=== PATIENT | female | born 1990 | race Caucasian/White ===

== ENCOUNTER 2019-11-10 17:24 | Emergency (ER) | payer OTHER, SELFPAY ==
[2019-11-10 17:25] VITALS: BP 122/67; PULSE 89; RESP 16; TEMP 36.3; O2SAT 100; BMI 23.8
--- NOTE | 2019-11-10 17:55 | ED.VISSUMM ---
- ER Visit Summary Date of Service: 11/10/19 Chief Complaint: Nausea and vomiting History of Present Illness: The patient is a 29 F who presents with nausea and vomiting that began today. Patient states she has been unable to keep anything down. Patient states she has been vomiting approximately every 1/2 hour throughout the day today. Patient denies any hematemesis or coffee-ground emesis. Patient admits to some sharp abdominal pain that comes on prior to vomiting. Patient states this is over the right side of her abdomen. Patient admits to subjective chills. Patient states she is approximately 6 to 7 weeks . Patient states her last menstrual period was in September. Patient denies any dysuria or hematuria. Patient denies any diarrhea, melena, or hematochezia. Physical Examination: Vital signs are stable. Patient is afebrile. Patient is in no acute distress. Oral mucosa is pink and moist. Neck is supple. Trachea is midline. There is no JVD. Heart was regular rate and rhythm. Lungs are clear and equal bilaterally. Abdomen is soft. Bowel sounds are normal. There is mild diffuse tenderness. There is no rebound or guarding noted. Cranial nerves II through XII are intact. There are no focal motor or sensory deficits noted. Test Results: CBC shows a mild leukocytosis of 16.6. This is likely due to the vomiting as well as the . Comprehensive metabolic profile was essentially within normal limits. Urinalysis does not show any evidence of urinary tract infection. Serum hCG was 24,413. Emergency Department Course and Treatment: Patient was given IV fluids and Zofran here. Patient was feeling better on reevaluation. Patient was given a prescription for Zofran. Patient was instructed to start with liquid diet and advance to a bland diet and then to a regular diet as she feels better. Patient was instructed to follow-up with her primary care physician and [employer]PORATE IN[employer]STIGATOR in 3 to 5 days. Patient understood and was agreeable with the plan. All questions were answered. Disposition: Discharge home Impression: Nausea and vomiting This note was generated with [employer] dictation software. It may contain incorrect words, spelling, and punctuation that were not noted in review of the chart prior to signing ED Disposition - Plan for ED Patient: Disposition: Home or Assisted Living Diagnosis: Nausea and vomiting Instructions: VOMITING (4y-Adult) Prescriptions: Ondansetron [Zofran Odt] 4 mg PO Q8H PRN PRN #10 tab PRN Reason: Nausea Prescription Printed Referrals: Care Physician,No Primary [Primary Care Provider] - 3-5 Days
[2019-11-10] MEDS: 0.9% Normal Saline 1,000 ML 1000 ML IV (18:13)
[2019-11-10] MEDS: Ondansetron 4 MG/2 ML Vial IV (18:16)
[2019-11-10 18:24] VITALS: BP 132/80; PULSE 80; RESP 14; O2SAT 98
[2019-11-10 18:28] LABS: Absolute Lymphocyte Count 0.44 X10^3/uL (0.83-4.51); Absolute Neutrophil Count 15.5 X10^3/uL (2.0-7.7); Basophil# 0.04 X10^3/uL; Basophil% 0.2 % (0-1); Eosinophil# 0.05 X10^3/uL; Eosinophils% 0.3 % (0-5); Hematocrit 41.8 % (37-47); Hemoglobin 14.5 g/dL (12.0-15.0); Lymphocyte # 0.44 X10^3/ul (4.0); Lymphocyte % 2.6 % (19-41); Mean Corp Hgb Conc 34.7 g/dL (32-36); Mean Corpuscular Hgb 29.1 pg (27.0-32.0); Mean Corpuscular Volume 83.8 fL (81-99); Mean Platelet Vol. 9.7 fl (6.2-12.0); Monocyte# 0.51 X10^3/uL; Monocyte% 3.1 % (0-10); NRBC Flagged by Analyzer 0 % (0-5); Neutrophil # 15.54 X10^3/uL (2.7-7.7); Neutrophil % 93.4 % (47-70); POSITIVE DIFFERENTIAL YES; Platelet Count 291 K/mm3 (150-450); RBC Distribution Width CV 12.2 % (11.6-14.6); RBC Distribution Width SD 36.9 fl (35.1-43.9); Red Blood Count 4.99 M/mm3 (4.2-5.4); White Blood Count 16.6 K/mm3 (4.4-11.0)
[2019-11-10 18:37] LABS: Differential Indicated SCAN CRITERIA MET
[2019-11-10 18:47] LABS: ALB/GLOB Ratio 1.2 RATIO (0.9-2.4); AST(SGOT) 17 U/L (15-37); Alanine Aminotransfer ALT/SGPT 33 U/L (13-56); Albumin, Serum 4.6 g/dL (3.2-5.0); Alkaline Phosphatase 52 U/L (45-117); Anion Gap 7 (5-15); BUN 15 mg/dL (7-18); BUN/Creat Ratio 19.6 RATIO (10-20); Calcium,Total 9.6 mg/dL (8.5-10.1); Chloride 105 mmol/L (98-107); Creatinine, Serum 0.77 mg/dL (0.55-1.02); EST Glomerular Filtration Rate 93 mL/min (>60); Est Glom Filt Rate - Afr Amer 113 mL/min (>60); Estimated Creatinine Clearance 106.79 ml/min; Globulin 3.9 g/dL (2.2-4.2); Glucose 116 mg/dL (74-106); Lipase 95 U/L (73-393); Potassium 3.5 mmol/L (3.5-5.1); Protein, Total 8.5 g/dL (6.4-8.2); Sodium Level 138 mmol/L (136-145)
[2019-11-10 19:06] LABS: hCG Titer Quant., Serum 24413 mIU/mL (1-3)
[2019-11-10 19:08] LABS: Differential Comment SCANNED; Platelet Estimate ADEQUATE (ADEQ); Red Cell Morphology NORM C+C NORMAL (NORM C&C)
[2019-11-10 19:55] LABS: Mucous, Urine 0 SEEN /hpf (<or=2+); Red Blood Cells-Urine 0 SEEN /hpf (0-5)
[2019-11-10 19:58] LABS: Color, Urine Yellow (Yellow); Glucose, Dipstick Normal (Normal); Leukocyte Esterase-Dipstick 100 /ul (Negative); Nitrite-Dipstick Negative (Negative); Occult Blood-Urine Negative /ul (Negative); Protein-Dipstick 30 mg/dl (Negative); Urine Bilirubin Dipstick Negative (Negative); Urine Clarity Clear (Clear); Urine Urobilinogen Normal (Normal)
[2019-11-10 20:00] LABS: Ketone-Dipstick 150 mg/dl (Negative)
[2019-11-10 20:15] LABS: Bacteria RARE /hpf (None Seen); Squamous Epithelial Cells - UA 0-5 SEEN /hpf (5-10); White Blood Cells 5-10 SEEN /hpf (0-5)
--- NOTE | 2019-11-10 20:21 | CM.ED ---
SOCIAL WORK REASON FOR REFERRAL: NO PCP MET WITH PATIENT AND IN ROOM. INTRODUCED ROLE AND REASON FOR REFERRAL. PATIENT REPORTS DOES NOT HAVE A PRIMARY CARE PHYSICIAN. PROVIDED PATIENT AND WITH LIST OF LOCAL PRIMARY CARE PHYSICIANS. NO FURTHER NEEDS. EDUAR BAPTISTE, MILK POWDER GRINDER.
[2019-11-10 20:52] VITALS: BP 121/70; PULSE 81; PULSE 82; RESP 14; O2SAT 98
== END 2019-11-10 21:04 | disposition home or self-care (01) ==
PROVIDERS: Emergency Provider Emergency Medicine
DX: O26.891 Other specified pregnancy related conditions, first trimester (principal); R11.2 Nausea with vomiting, unspecified; R10.9 Unspecified abdominal pain; J02.9 Acute pharyngitis, unspecified; R53.1 Weakness; J34.89 Other specified disorders of nose and nasal sinuses; Z3A.01 Less than 8 weeks gestation of pregnancy
CPT/HCPCS: 80053; 81001; 83690; 84702; 85025; 96361; 96374; 99283; J7030; A4216; J2405

== ENCOUNTER 2021-08-08 07:00 | Inpatient (IN) | payer OTHER, SELFPAY ==
[2021-08-08] VITALS (44 sets, daily range): BP systolic 99–124; BP diastolic 56–80; PULSE 57–108; TEMP 36.7–37.3; O2SAT 96–100; BMI 27.1
[2021-08-08] MEDS: Lactated Ringers 1,000 ML 50 ML IV (07:50)
--- NOTE | 2021-08-08 07:54 | PCM.HP.OB ---
HPI - General General Date of Admission: 08/08/21 HPI Narrative TANMAY GATES, is a 30 F @ 39.4 weeks who presents for elective IOL Maternal Data Information Final ENRIQUE: 08/11/21 Final ENRIQUE Source: US <20 weeks Gestational age: 39.4 PFSH PFSH Home Medications PNV cmb#95-ferrous fumarate-FA [] 1 ea PO DAILY 11/29/16 [History Last Taken 05/19/17 18:00] ibuprofen 800 mg PO Q8H PRN PRN #30 tablet 05/22/17 [Rx Last Taken Unknown] ondansetron 4 mg PO Q8H PRN PRN #10 tab 11/10/19 [Rx Last Taken Unknown] Allergy/AdvReac Type Severity Reaction Status Date / Time amoxicillin trihydrate Allergy Rash Verified 05/19/17 20:09 [From Augmentin] potassium clavulanate Allergy Rash Verified 05/19/17 20:09 [From Augmentin] morphine AdvReac Other Verified 05/19/17 20:09 Social History Smoking Status: Never smoker History Elective abortions Hx Para 0 Spontaneous abortions Hx # Term Pregnancies Ectopic pregnancies Hx # Pregnancies Multiple births # of living children NST FHR Rate Baby A Baseline: 140 Variability:: Moderate Accelerations:: 15 x 15 Decelerations:: None NST Reactive:: Yes FHR Category:: Category I Uterine Activity:: irregular Vital Signs Vital Signs Vital Signs: 08/08/21 07:29 08/08/21 07:30 Temperature 98.1 F Temperature Source Temporal Pulse Rate 87 Blood Pressure 118/80 BP Systolic 118 BP Diastolic 80 Pulse Ox 99 Weight Weight: 80.8 kg Body Mass Index (BMI) 27.1 Physical Exam Const alert and oriented x3 General Appearance: cooperative HEENT normocephalic GI GI Narrative: Gravid, non tender to palpation. OB / External & Speculum: external exam normal Extremity normal to inspection Skin no rashes or lesions noted Neuro oriented x3 and CN's II-XII intact bilaterally Psych Appearance: grossly normal Labs Labs Labs: Blood Type O POSITIVE Antibody Screen NEGATIVE Hct 41.8 % (37-47) Hgb 14.5 g/dL (12.0-15.0) Rhogam given: No Assessment & Plan (1) 39 weeks gestation of : PLAN: Admit to L&D [facility] FHR/TOCO Epidural if requested for pain Monitor VS Anticipate Pitocin IOL
--- NOTE | 2021-08-08 08:05 | PCM.PN.BLA ---
Progress Note Transcervical nathan placed without difficulty. pt tolerated well. start pitocin.
[2021-08-08 08:08] LABS: Absolute Lymphocyte Count 1.24 X10^3/uL (0.83-4.51); Absolute Neutrophil Count 10.6 X10^3/uL (2.0-7.7); Basophil# 0.07 X10^3/uL; Basophil% 0.5 % (0-1); Eosinophil# 0.09 X10^3/uL; Eosinophils% 0.7 % (0-5); Hematocrit 36.7 % (37-47); Hemoglobin 12.8 g/dL (12.0-15.0); Lymphocyte # 1.24 X10^3/ul (0.83-4.51); Lymphocyte % 9.4 % (19-41); Mean Corp Hgb Conc 34.9 g/dL (32-36); Mean Corpuscular Hgb 30.7 pg (27.0-32.0); Mean Platelet Vol. 10.8 fl (6.2-12.0); Monocyte# 0.89 X10^3/uL; Monocyte% 6.8 % (0-10); NRBC Flagged by Analyzer 0 % (0-5); Neutrophil # 10.55 X10^3/uL (2.7-7.7); Neutrophil % 80.1 % (47-70); Platelet Count 218 K/mm3 (150-450); RBC Distribution Width CV 12.5 % (11.6-14.6); RBC Distribution Width SD 39.9 fl (35.1-43.9); Red Blood Count 4.17 M/mm3 (4.2-5.4); White Blood Count 13.2 K/mm3 (4.4-11.0)
[2021-08-08] MEDS: 0.9% Normal Saline Single 100 ML IV.SOLN. INTRA-UTER (08:10)
[2021-08-08] MEDS: Oxytocin 30 units/NS 500 ml 30 UNITS/500 ML IV.SOLN IV (08:17)
[2021-08-08] MEDS: Lactated Ringers 500 ML 999 ML IV ×2 (10:50→17:42)
[2021-08-08] MEDS: fentaNYL-bupivacaine (epidural) 100 ML BAG EPIDURAL ×2 (11:55→16:18)
--- NOTE | 2021-08-08 12:31 | PCM.PN.BLA ---
Progress Note Patient seen at bedside, resting comfortably with epidural in place. AROM performed large amount of clear fluid. IUPC placed. heart rate remains category 1 reactive. Continue Pitocin. Anticipate normal spontaneous vaginal delivery.
[2021-08-08] MEDS: Penicillin G 3,000,000 Units 50 ML 100 UNITS IV ×2 (12:54→17:35)
[2021-08-08] MEDS: Lactated Ringers 1,000 ML 200 ML IV (16:18)
[2021-08-08] MEDS: Acetaminophen 500 MG Tablet PO (17:57)
[2021-08-08] MEDS: Ondansetron 4 MG/2 ML Vial IV (18:23)
[2021-08-08] MEDS: Oxytocin 30 units/NS 500 ml 30 UNITS/500 ML IV.SOLN 334 UNITS IV (19:09)
--- NOTE | 2021-08-08 19:18 | OP.PCM_ITS ---
Assessment & Plan (1) Vaginal delivery: Vaginal Delivery Maternal Presentation Maternal Presentation: Elective Induction Maternal Presentation: h/o shoulder dystocia with previous delivery. EFW less for this 65% Type of Induction: Pitocin, [place]ola Bulb and Amniotomy Operative Information Date of Procedure: 08/08/21 Pre-Operative Diagnosis: term gestation, elective IOL Post-Operative Diagnosis: same, live female infant Surgery / Procedure Performed: Spontaneous Vaginal Delivery Type of Anesthesia: Epidural Drain: [place] to straight drain Estimated Blood Loss: 100 Time of Delivery: 19:07 Findings Description of Procedure: Patient progressed to fully dilated. Resting comfortably with epidural in place. Upon my arrival head was +2 station patient was prepped for delivery. With good maternal pushing efforts the 's head was delivered 1 loose nuchal cord was noted and reduced. Anterior shoulder delivered without complication followed by the rest of 's body. The infant was placed on the mother's chest for immediate skin to skin. Delayed cord clamping was performed. was vigorous at time of delivery. First- degree perineal laceration appreciated. Repaired with 3-0 Rapide. Placenta delivered intact without complication. Presentation: Vertex Amniotic Membrane Rupture Type: Artificial Amniotic Fluid Description: Clear Placental Delivery Description: Spontaneous Placenta Disposition: [facility] Specimen(s) Removed: Placenta Cord Vessel Description: 3 Vessels Cord Entanglement: Around neck x 1, loose Nuchal Cord Compression: Without compression Infant A Gender: Female (1 minute): 8 (5 minute): 9 Delayed Cord Clamping: Yes Post Vaginal Delivery Medications Given After Delivery: IV Pitocin Episiotomy Description: None Laceration: Perineal Extension/lac and 1st degree Complication Complications: None Admit VTE Documentation VTE Present on Admission: No VTE Mechan Device Prophylaxis: None VTE Pharm Prophylaxis Ordered: No Reason Prophylaxis Not Ordered: Procedure Not Indicated
[2021-08-09] VITALS (11 sets, daily range): BP systolic 101–117; BP diastolic 58–75; PULSE 75–89; RESP 12–18; TEMP 36.4–37; O2SAT 97–98
[2021-08-09] MEDS: Ibuprofen 600 MG Tablet PO ×3 (00:26→20:44)
--- NOTE | 2021-08-09 08:51 | PCM.PN.OB ---
Subjective Subjective Pain controlled. She reports some sinus/nasal congestion that she was using mucinex for at home. Objective Data Objective Data Vital Signs: Vital Signs Temp Pulse Resp BP Pulse Ox 97.9 F 75 12 114/72 97 08/09/21 07:54 08/09/21 07:55 08/09/21 07:54 08/09/21 07:55 08/09/21 03:50 Oxygen Delivery Method Room Air Weight: 178 lb 2.136 oz Body Mass Index (BMI) 27.1 Intake & Output: Intake and Output for Last 24 Hours 08/07/21 08/08/21 08/09/21 23:59 23:59 23:59 Intake Total 3212.31 / 3212.31 Output Total 800 / 800 Balance 3212.31 / 3212.31 -800 / -800 Lab / Micro Data Result Diagrams: 08/08/21 07:50 Labs: Laboratory Results - last 24 hr 08/08/21 07:50: Blood Type O POSITIVE, Antibody Screen NEGATIVE Physical Exam Const alert, oriented x3 and no apparent distress HEENT normocephalic GI soft to palpation, non-tender and non-distended GI Narrative: fundus firm, mid & below umbilicus Extremity normal to inspection and no calf tenderness Assessment & Plan (1) Vaginal delivery: COMMENT: PPD#1 PLAN: Routine care Sinus congestion - mucinex & nasal spray ordered as patient was using at home
[2021-08-09] MEDS: Sodium Chloride 0.65% 1 SPRAY SPRAY.BTL 2 SPRAY NASAL (10:26)
[2021-08-09] MEDS: guaiFENesin 600 MG Tablet PO ×2 (10:26→22:02)
[2021-08-10 02:19] VITALS: BP 104/64; PULSE 63
[2021-08-10 02:21] VITALS: BP 104/64; PULSE 63; RESP 18; TEMP 36.6
[2021-08-10] MEDS: guaiFENesin 600 MG Tablet PO (08:11)
[2021-08-10 08:55] VITALS: BP 124/80; PULSE 97; RESP 16; TEMP 36.4
[2021-08-10] MEDS: Ibuprofen 600 MG Tablet PO (09:19)
--- NOTE | 2021-08-10 09:40 | PCM.DC.SUM ---
Providers Date of Admission: 08/08/21 Primary Care Physician: Kasia Primary Care Phys Reason For Visit: VAGINAL DELIVERY Diagnosis Discharge Diagnosis (1) Vaginal delivery: Status: Acute Code(s): O80 - Encounter for full-term uncomplicated delivery Medications at Discharge Home Medications PNV cmb#95-ferrous fumarate-FA [] 1 ea PO DAILY 11/29/16 acetaminophen 1,000 mg PO Q6H PRN PRN #0 tab 08/10/21 benzocaine-menthol [Dermoplast (with menthol)] 1 spray TOPICAL TID PRN PRN #0 g 08/10/21 ibuprofen 600 mg PO Q6H PRN PRN #30 tab 08/10/21 Weight / BMI Weight Weight: 178 lb 2.136 oz Body Mass Index (BMI) 27.1 ABG / Lab / Microbiology Data Result Diagrams: 08/08/21 07:50 Meaningful Use Info Meaningful Use Diagnoses (Choose all that apply): None applicable Discharge Plan Admission Admit Date/Time: 08/08/21 07:00 Primary Reason for Your Visit: vaginal delivery Attending Provider: Arleth Godoy Primary Care Provider: Care Physician,Kasia Primary Instructions Patient Instructions: After a Vaginal Additional Instructions / Restrictions: Follow up in 2 weeks and 6 weeks. Discharge Orders/Prescriptions Prescriptions: New acetaminophen 500 mg Tablet 1,000 mg PO Q6H PRN PRN (Reason: Pain 1-10 Or Fever) Qty: 0 RF: 0 Dermoplast (with menthol) 20-0.5 % Aerosol 1 spray topical TID PRN PRN (Reason: perineal discomfort) Qty: 0 RF: 0 ibuprofen 600 mg Tablet 600 mg PO Q6H PRN PRN (Reason: Pain Score 1-3) Qty: 30 RF: 0 Continued PNV cmb#95-ferrous fumarate-FA [] 1 EACH tablet 1 ea PO DAILY RF: 0 Discontinued ibuprofen 400 MG tablet 800 mg PO Q8H PRN PRN (Reason: Pain) Qty: 30 RF: 0 ondansetron 4 MG tablet 4 mg PO Q8H PRN PRN (Reason: Nausea) Qty: 10 RF: 0 Referrals / Follow Up: Care Physician,No Primary [Primary Care Provider] - Disposition Disposition (needs filled in before D/C Order can be placed): Home, Self Care
== END 2021-08-10 10:30 | disposition home or self-care (01) | DRG 807 ==
PROVIDERS: Admitting Provider Obstetrics & Gynecology; Referring Provider Obstetrics & Gynecology; Visit Provider Obstetrics & Gynecology
DX: O69.81X0 Labor and delivery complicated by cord around neck, without compression, not applicable or unspecified (principal); Z37.0 Single live birth; Z3A.39 39 weeks gestation of pregnancy; O70.0 First degree perineal laceration during delivery
CPT/HCPCS: 59025; 59050; 85025; 86850; 86900; 86901; 99218; J7120; G0378; J2405

== ENCOUNTER 2022-07-04 21:50 | Emergency (ER) | payer OTHER, SELFPAY ==
[2022-07-04 21:51] VITALS: BP 109/76; PULSE 95; RESP 15; TEMP 37.2; O2SAT 99; BMI 21.4
[2022-07-04] MEDS: dexAMETHasone 10 MG/ML Vial IV (23:11)
[2022-07-04] MEDS: Ondansetron 4 MG/2 ML Vial IV (23:11)
[2022-07-04] MEDS: Ketorolac 30 MG/ML Syringe IV (23:11)
[2022-07-04] MEDS: 0.9% Normal Saline 1,000 ML 999 ML IV (23:11)
--- NOTE | 2022-07-05 00:05 | EDS_ITS ---
HPI History of Present Illness Chief Complaint: General Illness Narrative Narrative: Patient is a 31-year-old female with no significant past medical history. She states that today she developed subjective fevers and chills with congestion cough myalgias and an upset stomach. She reports she took a home COVID test and it was positive. She states that she tried to take Tylenol but was unable to hold the medication down because of her nausea. She denies any difficulty breathing or swallowing but based on her positive test and constellation of symptoms presents for evaluation. PFSH PFSH Home Medications vit no.95-ferrous fumarate 28 mg-folic acid 800 mcg tablet () 1 ea PO DAILY Check with primary doctor 11/29/16 [History Last Taken 08/07/21] acetaminophen 500 mg tablet 1,000 mg PO Q6H PRN PRN Pain 1-10 Or Fever #0 tabs 08/10/21 [Rx Last Taken Unknown] benzocaine 20 %-menthol 0.5 % topical aerosol (Dermoplast (with menthol)) 1 spray topical TID PRN PRN perineal discomfort #0 grams 08/10/21 [Rx Last Taken Unknown] ibuprofen 600 mg tablet 600 mg PO Q6H PRN PRN Pain Score 1-3 #30 tabs 08/10/21 [Rx Last Taken Unknown] dexamethasone 6 mg tablet (Decadron) 6 mg PO DAILY 10 days #10 tabs 07/05/22 [Rx Last Taken Unknown] ondansetron 4 mg disintegrating tablet 4 mg PO TID PRN nausea and vomiting #21 tabs 07/05/22 [Rx Last Taken Unknown] promethazine 6.25 mg-codeine 10 mg/5 mL syrup 5 ml PO 4X/DAY PRN PRN cough 7 days #140 mL 07/05/22 [Rx Last Taken Unknown] Allergy/AdvReac Type Severity Reaction Status Date / Time amoxicillin trihydrate Allergy Rash Verified 07/04/22 21:55 [From Augmentin] potassium clavulanate Allergy Rash Verified 07/04/22 21:55 [From Augmentin] morphine AdvReac Other Verified 07/04/22 21:55 Surgical History (Updated 07/04/22 @ 23:09 by Luke Mcdaniel) History of abdominoplasty History of tonsillectomy and adenoidectomy Social History Smoking Status: Never smoker ROS ROS ED Constitutional Constitutional ED: Reports chills, fever(s) and subjective ENT ENT ED: Reports rhinorrhea and sore throat Cardiovascular Cardiovascular: Denies chest pain Respiratory/Chest Respiratory/Chest: Reports cough; Denies dyspnea Gastrointestinal Gastrointestinal: Reports nausea and vomiting; Denies abdominal pain or diarrhea Genitourinary Genitourinary ED: Denies dysuria or hematuria Musculoskeletal Musculoskeletal: Reports myalgias Integumentary Denies rash Neurologic Neurologic: Reports headache(s) Hematologic/Lymphatic Hematologic/Lymphatic: Denies easy bleeding or easy bruising EXAM Physical Exam Const Vital Signs: 07/04/22 21:51 07/04/22 23:04 07/05/22 00:27 Temperature 98.9 F Temperature Source Temporal Pulse Rate 95 Respiratory Rate 15 Respiratory Effort Normal Respiratory Pattern Normal Blood Pressure 109/76 Blood Pressure Mean 87 Pulse Ox 99 Oxygen Delivery Method Room Air Room Air 07/05/22 00:27 Temperature Temperature Source Pulse Rate 86 Respiratory Rate 15 Respiratory Effort Respiratory Pattern Blood Pressure 112/74 Blood Pressure Mean Pulse Ox 98 Oxygen Delivery Method Positive well nourished and well developed General Appearance ED: well developed Eyes PERRL and EOMs intact bilaterally Neck supple and no JVD Resp normal respiratory effort and clear to auscultation bilaterally Cardio regular rate and regular rhythm GI non-distended GI Narrative: Abdomen is soft and nondistended with hyperactive bowel sounds. There is mild diffuse pain on palpation without voluntary guarding or rigidity Auscultation: hyperactive bowel sounds Palpation: soft Extremity normal to inspection Neuro oriented x3, CN's II-XII intact bilaterally and no sensory deficits noted Sensorium / Orientation: alert Psych mental status grossly normal Skin no rashes or lesions noted MDM MDM MDM Narrative Medical decision making narrative: Patient presented to the ER with stable vitals and in no signs of respiratory distress. She reported at home COVID test today and her constellation of symptoms is consistent with this. Therefore I feel no need for repeat testing. At this time based on her stable vitals I do not feel there is need for chest x- ray or blood work. Patient was given IV fluids and treated with Toradol and and Decadron and Zofran. On reevaluation she remains in no acute respiratory distress. Vitals are stable and she reports improvement of her symptoms. Therefore at this time as her symptoms have improved with treatment and vitals remained stable and she is not requiring supplemental oxygen there is no need for further work-up and patient is otherwise safe for discharge. Discharge Plan Triage Chief Complaint: General Illness ED Provider: Bartolome Cisneros Dx/Rx/DC Orders Clinical Impression: COVID-19, Myalgia, Fatigue Instructions: Coronavirus Disease 2019 (COVID-19): Caring for Yourself or Others Prescriptions: New dexamethasone [Decadron] 6 mg tablet 6 mg PO DAILY 10 Days Qty: 10 0RF ondansetron 4 mg tablet,disintegrating 4 mg PO TID PRN (Reason: nausea and vomiting) Qty: 21 0RF promethazine-codeine 6.25-10 mg/5 mL syrup 5 ml PO 4X/DAY PRN PRN (Reason: cough) 7 Days Qty: 140 0RF No Action PNV cmb#95-ferrous fumarate-FA [] 1 EACH tablet 1 ea PO DAILY acetaminophen 500 mg Tablet 1,000 mg PO Q6H PRN PRN (Reason: Pain 1-10 Or Fever) Qty: 0 0RF Dermoplast (with menthol) 20-0.5 % Aerosol 1 spray topical TID PRN PRN (Reason: perineal discomfort) Qty: 0 0RF Protocol: *Topical Application Instructions APPLICATION INSTRUCTIONS: 1 spray 3 times a day as needed for perineal discomfort ibuprofen 600 mg Tablet 600 mg PO Q6H PRN PRN (Reason: Pain Score 1-3) Qty: 30 0RF Primary Care Provider: Dane Harper Referrals: Dane Harper DO [Primary Care Provider] - Disposition Disposition: Home, Self Care Discharge Date/Time: 07/05/22 00:31
[2022-07-05 00:27] VITALS: BP 112/74; PULSE 86; RESP 15; O2SAT 98
== END 2022-07-05 00:31 | disposition home or self-care (01) ==
PROVIDERS: Emergency Provider Emergency Medicine; PCP Preventive Medicine Occupational Medicine; Visit Provider Emergency Medicine
DX: U07.1 COVID-19 (principal)
CPT/HCPCS: 96361; 96374; 96375; 99282; J7030; A4216; J2405